=== PATIENT | male | born 1980 | race Caucasian/White ===

== ENCOUNTER 2019-07-19 14:44 | Emergency (ER) | payer OTHER ==
[~2019-07-19] VITALS: Ht 175.3 cm; Wt 81.6 kg
== END 2019-07-19 16:25 | disposition home or self-care (01) ==
LOC: ER 14:44
DX: S61.227A Laceration with foreign body of left little finger without damage to nail, initial encounter (principal); W25.XXXA Contact with sharp glass, initial encounter; Y93.G1 Activity, food preparation and clean up; Y92.018 Other place in single-family (private) house as the place of occurrence of the external cause; Y99.8 Other external cause status

== ENCOUNTER 2019-08-02 14:01 | Emergency (ER) | payer OTHER ==
[~2019-08-02] VITALS: Ht 175.3 cm; Wt 81.6 kg
== END 2019-08-02 14:45 | disposition home or self-care (01) ==
LOC: ER 14:01
DX: Z48.02 Encounter for removal of sutures (principal)

== ENCOUNTER 2023-01-01 12:31 | Emergency (ER) | payer OTHER ==
[~2023-01-01] VITALS: Ht 177.8 cm; Wt 80.7 kg
== END 2023-01-01 17:14 | disposition home or self-care (01) ==
LOC: ER 12:31
DX: S02.2XXA Fracture of nasal bones, initial encounter for closed fracture (principal); S06.89AA Other specified intracranial injury with loss of consciousness status unknown, initial encounter; X58.XXXA Exposure to other specified factors, initial encounter; Y93.89 Activity, other specified; Y92.89 Other specified places as the place of occurrence of the external cause; Y99.8 Other external cause status